=== PATIENT | female | born 1955 | race Caucasian/White ===

== ENCOUNTER → 2016-10-09 | Outpatient (CLI) | payer OTHER | END | disposition home or self-care (01) | LOC: LABWHC1 09:41 | PROVIDERS: ATTEND Psychiatry & Neurology Neurology | DX: R53.83 Other fatigue (principal); R41.3 Other amnesia | CPT/HCPCS: 36415; 82607; 84439; 84443; 84481; 85652; 86780 ==

== ENCOUNTER → 2016-10-12 | Outpatient (CLI) | payer OTHER ==
--- NOTE | 2016-10-12 16:03 | CT ---
EXAMINATION TYPE: CT brain wo con DATE OF EXAM: 10/12/2016 3:57 PM COMPARISON: NONE HISTORY: Forgetfulness CT DLP: 1046 mGycm Automated exposure control for dose reduction was used. FINDINGS: Central structures are midline. There is no evidence of hydrocephalus. No acute focal lesio n, mass effect or midline shift is seen. I do not see evidence of intracranial blood. There is a small air-fluid level in the left maxillary sinus. No depressed skull fracture is seen. IMPRESSION: 1. NORMAL CT SCAN OF THE BRAIN. 2. EVIDENCE OF ACUTE LEFT MAXILLARY SINUSITIS.
== END ==
LOC: RADCTMAIN 15:32
PROVIDERS: ATTEND Psychiatry & Neurology Neurology
DX: J01.00 Acute maxillary sinusitis, unspecified (principal); R41.0 Disorientation, unspecified
CPT/HCPCS: 70450

== ENCOUNTER → 2017-03-02 | Outpatient (CLI) | payer OTHER ==
[2017-03-02 10:13] LABS: CH 30.9; CHCM 32.3; HDW 2.25; HGB 13.5 gm/dL (11.4-16.0); MCH 30.3 pg (25.0-35.0); MCHC 31.4 g/dL (31.0-37.0); MCV 96.3 fL (80.0-100.0); Mean Platelet Volume 7.8; RBC 4.47 m/uL (3.80-5.40); RDW 14.1 % (11.5-15.5); WBC 7.9 k/uL (3.8-10.6)
[2017-03-02 10:18] LABS: ALT 40 U/L (9-52); AST 20 U/L (14-36); Alkaline Phosphatase 77 U/L (38-126); Anion Gap 9 mmol/L; Blood Urea Nitrogen 18 mg/dL (7-17); Calcium 8.9 mg/dL (8.4-10.2); Carbon Dioxide 27 mmol/L (22-30); Chloride 105 mmol/L (98-107); Cholesterol 179 mg/dL (<200); Glucose 84 mg/dL (74-99); HDL Cholesterol 40 mg/dL (40-60); Non-African American GFR(MDRD) >60 (>60 ml/min/1.73 sqM); Potassium 4.1 mmol/L (3.5-5.1); Sodium 141 mmol/L (137-145); Total Bilirubin 0.5 mg/dL (0.2-1.3); Total Protein 6.5 g/dL (6.3-8.2)
== END | disposition home or self-care (01) ==
LOC: LABWHC1 09:31
PROVIDERS: ATTEND Nurse Practitioner Adult Health
DX: E78.5 Hyperlipidemia, unspecified (principal); I10 Essential (primary) hypertension; R60.0 Localized edema
CPT/HCPCS: 36415; 80053; 80061; 83880; 84443; 85027

== ENCOUNTER 2017-04-01 12:14 | Observation (INO) | payer OTHER ==
[2017-04-01] MEDS ORDERED: NITROGLYCERIN OINT 1 INCH/GM PACKET TOPICAL STA (12:43)
[2017-04-01] MEDS ORDERED: ASPIRIN 81 MG PO STA (12:43)
--- NOTE | 2017-04-01 12:47 | ED ---
General Adult HPI - General Chief complaint: Chest Pain Stated complaint: chest pain Time Seen by Provider: 04/01/17 12:20 Source: patient, RN notes reviewed Mode of arrival: wheelchair Limitations: no limitations - History of Present Illness Initial comments: This is a 61-year-old female who presents to the emergency department complaining of intermittent chest pain. Patient states it feels like someone sitting on her chest and she became nauseated with but no vomiting. Patient also states she had some shortness of breath associated with it as well. Patient states it lasts a few seconds to minutes. Patient states his been ongoing all day today. Patient states she's had similar symptoms in the past but they usually go away and don't return today they have been consistently returning since she woke up. Patient denies any recent fever chills or cough. Patient denies any palpitations. Patient denies abdominal pain patient denies nausea vomiting diarrhea. Patient states she had a recent stress test but she has not got the results. Patient denies any headache patient denies numbness weakness. Patient states she was lightheaded earlier when she had the chest pain but no longer. Patient states currently she is chest pain-free. - Related Data Home Medications Medication Instructions Recorded Confirmed Hydrochlothiazide 1 tab PO DAILY 03/08/15 03/08/15 Previous Rx's Medication Instructions Recorded HYDROcodone/APAP 5-325MG [[place] 5] 1 each PO Q4HR PRN #20 tab 03/08/15 Naproxen [Naprosyn] 500 mg PO Q12HR #24 tab 03/08/15 Neomycin Chen/Colist/Hc/Thonzon 5 drops LEFT EAR Q4H #1 bottle 03/08/15 [Cortisporin-Tc Otic Susp] Allergies Allergy/AdvReac Type Severity Reaction Status Date / Time No Known Allergies Allergy Verified 04/01/17 12:23 Review of Systems ROS Statement: Those systems with pertinent positive or pertinent negative responses have been documented in the HPI. ROS Other: All systems not noted in ROS Statement are negative. Past Medical History Past Medical History: Hypertension History of Any Multi-Drug Resistant Organisms: None Reported Past Surgical History: Tonsillectomy, Tubal Ligation Additional Past Surgical History / Comment(s): back surgery Past Psychological History: Depression Smoking Status: Never smoker Past Alcohol Use History: None Reported Past Drug Use History: None Reported General Exam - General Exam Comments Initial Comments: GENERAL: Patient is well-developed and well-nourished. Patient is nontoxic and well- hydrated and is in no acute distress. ENT: Neck is soft and supple. No significant lymphadenopathy is noted. Oropharynx is clear. Moist mucous membranes. Neck has full range of motion without eliciting any pain. EYES: The sclera were anicteric and conjunctiva were pink and moist. Extraocular movements were intact and pupils were equal round and reactive to light. Eyelids were unremarkable. PULMONARY: Unlabored respirations. Good breath sounds bilaterally. No audible rales rhonchi or wheezing was noted. CARDIOVASCULAR: There is a regular rate and rhythm without any murmurs gallops or rubs. ABDOMEN: Soft and nontender with normal bowel sounds. No palpable organomegaly was noted. There is no palpable pulsatile mass. SKIN: Skin is clear with no lesions or rashes and otherwise unremarkable. NEUROLOGIC: Patient is alert and oriented x3. Cranial nerves II through XII are grossly intact. Motor and sensory are also intact. Normal speech, volume and content. Symmetrical smile. MUSCULOSKELETAL: Normal extremities with adequate strength and full range of motion. No lower extremity swelling or edema. No calf tenderness. LYMPHATICS: No significant lymphadenopathy is noted PSYCHIATRIC: Normal psychiatric evaluation. Normal interpersonal interactions appears functionally intact in deals appropriately with others. No signs of depression. No signs of anxiety. Limitations: no limitations Course Vital Signs 04/01/17 04/01/17 12:20 13:09 Temperature 98.8 F Pulse Rate 52 L 57 L Respiratory 20 18 Rate Blood Pressure 131/71 133/72 O2 Sat by Pulse 98 98 Oximetry Medical Decision Making - Medical Decision Making EKG shows sinus bradycardia 51 bpm LA interval is 178 QRSs 108 QTC intervals 410 QTC is 377. Patient's EKG shows no ST segment elevation or depression or T wave abnormalities are noted. Patient has unstable angina so I started the patient on heparin. She continues to have intermittent pain while in the emergency department. Patient's chest x- ray was normal. I spoke with Dr. Juares she agreed to admit the patient I wrote admitting orders I continued patient's heparin Nitropaste and aspirin up on the floor. I consult cardiology. - Lab Data Result diagrams: 04/01/17 12:31 04/01/17 12:31 Lab Results 04/01/17 04/01/1717 Range/Units 12:31 12:31 12:31 WBC 9.5 (3.8-10.6) k/uL RBC 4.52 (3.80-5.40) m/uL Hgb 13.7 (11.4-16.0) gm/dL Hct 41.9 (34.0-46.0) % MCV 92.8 (80.0-100.0) fL MCH 30.3 (25.0-35.0) pg MCHC 32.7 (31.0-37.0) g/dL RDW 14.1 (11.5-15.5) % Plt Count 255 (150-450) k/uL Neutrophils % 72 % Lymphocytes % 20 % Monocytes % 4 % Eosinophils % 1 % Basophils % 1 % Neutrophils # 6.9 (1.3-7.7) k/uL Lymphocytes # 1.9 (1.0-4.8) k/uL Monocytes # 0.4 (0-1.0) k/uL Eosinophils # 0.1 (0-0.7) k/uL Basophils # 0.1 (0-0.2) k/uL PT (9.0-12.0) sec INR (<1.2) APTT (22.0-30.0) sec Sodium 142 (137-145) mmol/L Potassium 4.7 (3.5-5.1) mmol/L Chloride 107 (98-107) mmol/L Carbon Dioxide 23 (22-30) mmol/L Anion Gap 12 mmol/L BUN 16 (7-17) mg/dL Creatinine 0.71 (0.52-1.04) mg/dL Est GFR (MDRD) Af Amer >60 (>60 ml/min/1.73 sqM) Est GFR (MDRD) Non-Af >60 (>60 ml/min/1.73 sqM) Glucose 93 (74-99) mg/dL Calcium 9.8 (8.4-10.2) mg/dL Magnesium 2.0 (1.6-2.3) mg/dL Total Bilirubin 0.4 (0.2-1.3) mg/dL AST 27 (14-36) U/L ALT 44 (9-52) U/L Alkaline Phosphatase 84 (38-126) U/L Total Creatine Kinase 176 H (30-135) U/L CK-MB (CK-2) 2.2 (0.0-2.4) ng/mL CK-MB (CK-2) Rel Index 1.3 Troponin I <0.012 (0.000-0.034) ng/mL Total Protein 7.3 (6.3-8.2) g/dL Albumin 4.3 (3.5-5.0) g/dL 04/01/17 Range/Units 12:31 WBC (3.8-10.6) k/uL RBC (3.80-5.40) m/uL Hgb (11.4-16.0) gm/dL Hct (34.0-46.0) % MCV (80.0-100.0) fL MCH (25.0-35.0) pg MCHC (31.0-37.0) g/dL RDW (11.5-15.5) % Plt Count (150-450) k/uL Neutrophils % % Lymphocytes % % Monocytes % % Eosinophils % % Basophils % % Neutrophils # (1.3-7.7) k/uL Lymphocytes # (1.0-4.8) k/uL Monocytes # (0-1.0) k/uL Eosinophils # (0-0.7) k/uL Basophils # (0-0.2) k/uL PT 10.4 (9.0-12.0) sec INR 1.0 (<1.2) APTT 24.1 (22.0-30.0) sec Sodium (137-145) mmol/L Potassium (3.5-5.1) mmol/L Chloride (98-107) mmol/L Carbon Dioxide (22-30) mmol/L Anion Gap mmol/L BUN (7-17) mg/dL Creatinine (0.52-1.04) mg/dL Est GFR (MDRD) Af Amer (>60 ml/min/1.73 sqM) Est GFR (MDRD) Non-Af (>60 ml/min/1.73 sqM) Glucose (74-99) mg/dL Calcium (8.4-10.2) mg/dL Magnesium (1.6-2.3) mg/dL Total Bilirubin (0.2-1.3) mg/dL AST (14-36) U/L ALT (9-52) U/L Alkaline Phosphatase (38-126) U/L Total Creatine Kinase (30-135) U/L CK-MB (CK-2) (0.0-2.4) ng/mL CK-MB (CK-2) Rel Index Troponin I (0.000-0.034) ng/mL Total Protein (6.3-8.2) g/dL Albumin (3.5-5.0) g/dL Critical Care Time Critical Care Time: Yes Total Critical Care Time: 35 Disposition Clinical Impression: Unstable angina pectoris Disposition: ADMITTED IP TO THIS HOSP Referrals: Virgilio Madsen MD [Primary Care Provider] - 1-2 days Time of Disposition: 13:54
--- NOTE | 2017-04-01 12:57 | XR ---
EXAMINATION TYPE: XR chest 2V DATE OF EXAM: 04/01/2017 COMPARISON: NONE HISTORY: Shortness of breath TECHNIQUE: Frontal and lateral views of the chest are obtained. FINDINGS: Scattered senescent parenchymal changes noted. Hyperinflation compatible with COPD. No evidence for infiltrate. No evidence for atelectasis. Heart size is stable. Mediastinal structures are stable and grossly unremarkable. No evidence for hilar prominence. Degenerative changes dorsal spine. IMPRESSION: 1. No evidence for acute pulmonary disease.
[2017-04-01 13:00] LABS: Basophils # (A) 0.1 k/uL (0-0.2); Basophils % (A) 1 %; CH 31.5; CHCM 34.1; Eosinophils # (A) 0.1 k/uL (0-0.7); Eosinophils % (A) 1 %; HCT 41.9 % (34.0-46.0); HDW 2.29; HGB 13.7 gm/dL (11.4-16.0); Luc # (Auto) 0.17; Luc % (Auto) 2; Lymphocytes # (A) 1.9 k/uL (1.0-4.8); Lymphocytes % (A) 20 %; MCH 30.3 pg (25.0-35.0); MCHC 32.7 g/dL (31.0-37.0); MCV 92.8 fL (80.0-100.0); Mean Platelet Volume 7.5; Monocytes # (A) 0.4 k/uL (0-1.0); Monocytes % (A) 4 %; Neutrophils # (A) 6.9 k/uL (1.3-7.7); Neutrophils % (A) 72 %; RBC 4.52 m/uL (3.80-5.40); RDW 14.1 % (11.5-15.5); WBC 9.5 k/uL (3.8-10.6); WBC (Perox) 10.01
[2017-04-01 13:06] LABS: Partial Thromboplastin Time 24.1 sec (22.0-30.0); Prothrombin Time 10.4 sec (9.0-12.0)
[2017-04-01 13:07] LABS: ALT 44 U/L (9-52); AST 27 U/L (14-36); Alkaline Phosphatase 84 U/L (38-126); Anion Gap 12 mmol/L; Blood Urea Nitrogen 16 mg/dL (7-17); Calcium 9.8 mg/dL (8.4-10.2); Carbon Dioxide 23 mmol/L (22-30); Chloride 107 mmol/L (98-107); Glucose 93 mg/dL (74-99); Non-African American GFR(MDRD) >60 (>60 ml/min/1.73 sqM); Potassium 4.7 mmol/L (3.5-5.1); Sodium 142 mmol/L (137-145); Total Bilirubin 0.4 mg/dL (0.2-1.3); Total Protein 7.3 g/dL (6.3-8.2)
[2017-04-01 13:18] LABS: Creatine Kinase 176 U/L (30-135)
[2017-04-01 13:30] LABS: Creatine Kinase MB 2.2 ng/mL (0.0-2.4); Troponin I <0.012 ng/mL (0.000-0.034)
[2017-04-01] MEDS ORDERED: HEPARIN SODIUM,PORCINE 5,000 UNIT/ML 1 ML VIAL IV ONE (13:54)
[2017-04-01] MEDS ORDERED: NITROGLYCERIN SL TABS 0.4 MG TAB SUBLINGUAL PRN (13:55)
[2017-04-01] MEDS ORDERED: HEPARIN SODIUM,PORCINE/D5W PMX 25,000 UNIT in DEXTROSE/WATER 1 500ML.BAG IV SCH (14:00)
[2017-04-01 19:51] LABS: Creatine Kinase 146 U/L (30-135)
[2017-04-01 19:58] LABS: Partial Thromboplastin Time 27.8 sec (22.0-30.0)
[2017-04-01 20:01] LABS: Troponin I <0.012 ng/mL (0.000-0.034)
[2017-04-01 20:04] LABS: Creatine Kinase MB 2.2 ng/mL (0.0-2.4)
[2017-04-01] MEDS ORDERED: RX INFO: IV CONTRAST WAS GIVEN 1 EACH MISC MISCELLANE PRN (21:47)
--- NOTE | 2017-04-01 22:40 | CT ---
EXAM: CT Angiography Chest With Intravenous Contrast CLINICAL HISTORY: Reason: elevated d-dimer TECHNIQUE: Axial computed tomographic angiography images of the chest with 100 mL of Omni 350 administered intravenously. DLP is 493.40 mGy-cm. This CT exam was performed using one or more of the following dose reduction techniques: automated exposure control, adjustment of the mA and/or kV according to patient size, and/or use of iterative reconstruction technique. MIP reconstructed images were created and reviewed. COMPARISON: No relevant prior studies available. FINDINGS: Pulmonary arteries: Unremarkable. No pulmonary embolism. Aorta: No acute findings. No thoracic aortic aneurysm. Lungs: Unremarkable. No mass. No consolidation. Pleural space: Unremarkable. No significant effusion. No pneumothorax. Heart: Unremarkable. No cardiomegaly. No significant pericardial effusion. No evidence of RV dysfunction. Bones/joints: No acute fracture. No dislocation. Soft tissues: Enlarged right thyroid lobe noted. Lymph nodes: Unremarkable. No enlarged lymph nodes. IMPRESSION: 1. Normal chest CTA. No pulmonary embolism. 2. Incidental enlarged right thyroid lobe noted.
[2017-04-01] MEDS: NITROGLYCERIN OINT 1 INCH/GM PACKET TOPICAL SCH (22:45)
[2017-04-02] MEDS: NITROGLYCERIN OINT 1 INCH/GM PACKET TOPICAL SCH ×3 (00:36→12:26)
[2017-04-02 01:54] LABS: Creatine Kinase 139 U/L (30-135)
[2017-04-02 02:07] LABS: Creatine Kinase MB 1.6 ng/mL (0.0-2.4); Troponin I <0.012 ng/mL (0.000-0.034)
[2017-04-02 02:54] LABS: Cholesterol 231 mg/dL (<200); HDL Cholesterol 35 mg/dL (40-60)
[2017-04-02 08:08] VITALS: BP 118/60; PULSE 53; RESP 16; TEMP 97.6
[2017-04-02] MEDS ORDERED: FUROSEMIDE 20 MG TAB PO SCH (09:00)
[2017-04-02] MEDS ORDERED: ASPIRIN 325 MG TAB PO SCH (09:00)
[2017-04-02] MEDS ORDERED: POTASSIUM CHLORIDE ER 10 MEQ TAB.ER.PRT PO SCH (09:00)
[2017-04-02] MEDS ORDERED: LISINOPRIL 10 MG TAB PO SCH (09:00)
--- NOTE | 2017-04-02 11:24 | CONS ---
CONSULTATION This is a 61-year-old lady with a history of obesity, hypertension who sees Dr. Madsen in the outpatient setting. Came into the hospital with episode of chest pressure. The quality of the discomfort seems somewhat atypical but seemed to be persistent and she obtained some relief with nitro paste. At the time of my evaluation, she is comfortable, resting, feels her symptoms have resolved. Apparently this has been going on for about a 4 to 5 week duration and she saw Dr. Rodriguez in the office upon referral by Dr. Madsen and a stress test and echo were performed. The results are not available at the time of my dictation. However, patient is reasonably active. Her symptoms do not seem to occur with activity. They are random in fashion and especially this episode of chest pressure occurred while she was not doing any physical activity. She described it as a heavy pressure associated with some nausea and some shortness of breath. However she is asymptomatic, resting comfortably. Initial EKG and troponins are normal. PAST MEDICAL HISTORY: 1. Hypertension. 2. Probable reactive airway disease. 3. Patient is status post tubal ligation and tonsillectomy. 4. She also had some back surgery in the past. SOCIAL HISTORY: Patient is not a smoker. Does not consume alcohol on a regular basis. MEDICATIONS: Medications at home include Zestril 10 mg daily, Lasix 20 mg p.r.n., potassium 20 mEq daily. She also takes some Flonase spray. ALLERGIES: None. REVIEW OF SYSTEMS: Unremarkable other than above-mentioned facts. PHYSICAL EXAMINATION: On examination, blood pressure is 128/70, pulse rate is 60 per minute, regular. HEENT: Unremarkable. Fundus was not examined by me. NECK: Supple. There is no JVD. I do not hear a carotid bruit. Heart exam reveals S1, S2. There is a short systolic murmur at the base with preserved second heart sound. Lungs are clear. Abdomen is distended, nontender. Lower extremities reveal palpable pulses, trace edema. Central nervous system is normal. EKG revealed sinus mechanism, leftward axis, no acute changes. LABORATORY DATA: Laboratory data revealed unremarkable troponins. IMPRESSION: 1. Chest pain syndrome, several features are atypical but cannot exclude angina. 2. Hypertension. 3. Obesity. 4. Patient had recent outpatient testing and I will secure this information. RECOMMENDATIONS: For now I am recommending that we continue IV heparin and nitro paste. If she has further symptoms or if the stress test info suggests any ischemia, I will recommend cardiac cath. Otherwise we will pursue current management and I will call back and update with the findings on the stress test that was apparently performed. Discussed my thoughts in detail with the patient. The patient does not seem to have any symptoms or she is not in any distress at this time and EKG was unremarkable. Thank you very much for the consult. MATTIE / ROSALIA: [id number] /
--- NOTE | 2017-04-02 17:12 | P.HPIM ---
History of Present Illness H&P Date: 04/02/17 Chief Complaint: Chest pain This will serve both H&P and discharge summary This is a pleasant 61-year-old lady patient of Dr. Kj barry. She has underlying history off hypertension and hyperlipidemia, mold ALLERGIES cat ALLERGIES, admitted to the emergency room with intermittent chest pain for the past 4 weeks accompanied by nausea and intermittent shortness of breath, this lasted for a few seconds to a few minutes, however over the past 1-2 days this has persisted. Patient was subsequently seen in the emergency room, for evaluation. she sees a windows and doors installer however she had a stress test for it was done 2 weeks ago along with an echocardiogram, the results are not known by the patient, Other symptoms include paresthesias in the left side of the body during the chest pain. No radiation of the pain, no dyspepsia, except for nausea, patient did not have any previous workup of the gallbladder in the past no cough no leg swelling. Emergency room she had been evaluated, EKG was unremarkable troponins are negative 3, d-dimer is elevated at 0.0824 which was requested CTA PE protocol, this is negative for pulmonary emboli however there is a noticeable right thyroid enlargement noted. She was admitted with consultation to cardiology Review of Systems Constitutional: Reports as per HPI, Denies anorexia, Denies chills, Denies chronic headaches, Denies chronic pain, Denies daytime sleepiness, Denies fatigue, Denies fever, Denies lethargy, Denies malaise, Denies night sweats, Denies poor appetite, Denies sweats, Denies weakness, Denies weight gain, Denies weight loss Ears, nose, mouth and throat: Reports as per HPI, Denies ant. neck pain, Denies bleeding gums, Denies dental pain, Denies dysphagia, Denies epistaxis, Denies headache, Denies hoarseness, Denies mouth pain, Denies nasal congestion, Denies nasal discharge, Denies neck fullness/pressure, Denies neck lump, Denies nose pain, Denies odynophagia, Denies post-nasal drip, Denies sinus pain, Denies sinus pressure, Denies swelling in mouth, Denies swelling in throat, Denies sore throat, Denies vertigo, Denies voice changes Breasts: Reports as per HPI Cardiovascular: Reports as per HPI, Reports chest pain, Denies claudication, Denies decreased exercise tolerance, Denies dyspnea on exertion, Denies edema, Denies high blood pressure, Denies irregular heart beat, Denies leg edema, Denies lightheadedness, Denies orthopnea, Denies palpitations, Denies paroxysmal nocturnal dyspnea, Denies phlebitis, Denies rapid heart beat, Denies shortness of breath, Denies syncope Respiratory: Reports as per HPI Gastrointestinal: Reports as per HPI, Denies abdominal pain, Denies belching, Denies bloating, Denies BRBPR, Denies change in bowel habits, Denies coffee ground emesis, Denies constipation, Denies diarrhea, Denies dyspepsia, Denies early satiety, Denies excessive gas, Denies heartburn, Denies hematemesis, Denies hematochezia, Denies indigestion, Denies jaundice, Denies lactose intolerance, Denies loss of appetite, Denies melena, Denies nausea, Denies vomiting Genitourinary: Reports as per HPI, Denies abnormal vaginal bleeding, Denies decreased libido, Denies difficulty conceiving, Denies difficulty voiding, Denies dysmenorrhea, Denies dyspareunia, Denies dysuria, Denies flank pain, Denies genital sores, Denies hematuria, Denies hot flashes, Denies incomplete emptying, Denies kidney stones, Denies menorrhagia, Denies mixed incontinence, Denies nocturia, Denies pelvic pain, Denies post void dribbling, Denies , Denies prolapse symptoms, Denies stress incontinence, Denies urge incontinence , Denies urgency, Denies urinary frequency, Denies vaginal discharge, Denies vaginal dryness, Denies vaginal itching, Denies vaginal odor Menstruation: Reports postmenopausal Musculoskeletal: Reports as per HPI, Denies arm numbness/tingling, Denies atrophy, Denies fractures, Denies frequent falls, Denies gait dysfunction, Denies hot joints, Denies leg numbness/tingling, Denies limitation of motion, Denies loss of height, Denies low back pain, Denies morning stiffness, Denies muscle cramps, Denies muscle weakness, Denies myalgias, Denies neck pain, Denies neck stiffness, Denies prior amputations, Denies redness of joints, Denies shooting arm pain, Denies shooting leg pain Integumentary: Reports as per HPI Neurological: Reports paresthesias, Denies as per HPI, Denies aphasia, Denies ataxia, Denies balance difficulties, Denies burning pain, Denies change in mentation, Denies change in smell/taste, Denies change in speech, Denies confusion, Denies convulsions, Denies double vision, Denies gait dysfunction, Denies head injury, Denies headaches, Denies hearing difficulties, Denies lack of coordination, Denies loss of vision, Denies memory loss, Denies migraines, Denies motor disturbance, Denies numbness, Denies paralysis, Denies seizures, Denies sensory deficit, Denies spasticity, Denies syncope, Denies tic, Denies tingling, Denies transient paralysis, Denies tremors, Denies vertigo, Denies weakness, Denies visual changes Psychiatric: Reports as per HPI, Reports anxiety Endocrine: Reports as per HPI Hematologic/Lymphatic: Reports as per HPI, Denies easy bleeding, Denies easy bruising, Denies lymphadenopathy, Denies lymphedema, Denies thrombophilia Allergic/Immunologic: Reports as per HPI, Denies allergic rhinitis, Denies anaphylaxis, Denies angioedema, Denies gluten intolerance, Denies persistent infections, Denies seasonal allergies, Denies urticaria, Denies wheezing Past Medical History Past Medical History: Eye Disorder, Hypertension, Osteoarthritis (OA), Sleep Apnea/CPAP/BIPAP Additional Past Medical History / Comment(s): COLITIS,"GLAUCOMA NOT SURE WHICH EYE", PAST MIGTAINES, SINUS PROBLEMS, DDD-SPINE, HEMORRHOIDS-"HAD SOME BLEEDING FROM THEM LAST WEEK". History of Any Multi-Drug Resistant Organisms: None Reported Past Surgical History: Back Surgery, Tonsillectomy, Tubal Ligation Additional Past Surgical History / Comment(s): back surgery Past Anesthesia/Blood Transfusion Reactions: Motion Sickness Additional Past Anesthesia/Blood Transfusion Reaction / Comment(s): MILD CLUASTERPHOBIA Smoking Status: Never smoker - Past Family History Mother Family Medical History: Cancer Additional Family Medical History / Comment(s): AT AGE 64 LUNG CANCER W/ METS. Father Family Medical History: Cancer Additional Family Medical History / Comment(s): AT AGE 76-LYMPHOMA Medications and Allergies Home Medications Medication Instructions Recorded Confirmed Type Biotin 5 mg PO DAILY 04/01/17 04/01/17 History Fluticasone Nasal Pioche [Flonase 1 spray EA NOSTRIL DAILY PRN 04/01/17 04/01/17 History Nasal Pioche] Furosemide [Lasix] 20 mg PO DAILY 04/01/17 04/01/17 History Lisinopril [Zestril] 10 mg PO DAILY 04/01/17 04/01/17 History Plant Stanol Geetha [Cholest Off] 450 mg PO DAILY 04/01/17 04/01/17 History Potassium Chloride ER [K-Dur 10] 10 meq PO DAILY 04/01/17 04/01/17 History Aspirin [Adult Low Dose Aspirin EC] 81 mg PO AC-BRKFST #30 tablet. 04/02/17 Rx Budesonide-Formot 160-4.5 Mcg 2 puff INHALATION BID #1 inhaler 04/02/17 Rx [Symbicort 160-4.5 Mcg Inhaler] Allergies Allergy/AdvReac Type Severity Reaction Status Date / Time No Known Allergies Allergy Verified 04/01/17 14:03 Physical Exam Vitals: Vital Signs Temp Pulse Pulse Resp BP Pulse Ox 04/02/17 08:00 97.6 F 53 L 16 118/60 98 04/02/17 04:00 97.9 F 50 L 18 111/59 99 04/02/17 03:13 44 L 18 04/02/17 00:00 53 L 18 04/01/17 23:16 47 L 18 110/52 97 04/01/17 19:18 97.6 F 56 L 18 124/62 95 04/01/17 17:27 98.1 F 54 L 18 133/66 99 Intake and Output 04/02/17 04/02/17 04/02/17 06:59 14:59 22:59 Other: Voiding Method Toilet Toilet - Constitutional General appearance: no average body habitus, cooperative, no disheveled, no mild distress, no morbidly obese, no acute distress, obese, no severe distress, no thin - EENT Eyes: no abnormal pupil, anicteric sclerae, no disc margins sharp, no edentulous , EOMI, PERRLA, no fundus normal, no photophobia, dentition normal, no poor dentition, no ptosis, no scleral icterus, normal appearance ENT: hearing grossly normal, NA/AT, normal oropharynx - Respiratory Respiratory: bilateral: CTA, negative: diminished, dullness, rales, rhonchi - Cardiovascular Rhythm: regular Heart sounds: normal: S1, S2 Abnormal Heart Sounds: no systolic murmur, no diastolic murmur, no rub, no S3 Gallop, no S4 Gallop, no click, no other - Gastrointestinal General gastrointestinal: normal bowel sounds, soft - Integumentary Integumentary: normal, normal turgor - Neurologic Neurologic: CNII-XII intact - Musculoskeletal Musculoskeletal: gait normal, strength equal bilaterally - Psychiatric Psychiatric: A&O x's 3, appropriate affect, intact judgment & insight Results CBC & Chem 7: 04/01/17 12:31 04/01/17 12:31 Labs: Abnormal Lab Results - Last 24 Hours (Table) 04/01/17 04/01/17 04/01/17 Range/Units 12:31 19:19 19:19 D-Dimer 0.82 H (<0.60) mg/L FEU Total Creatine Kinase 146 H (30-135) U/L Triglycerides 180 H (<150) mg/dL Cholesterol 231 H (<200) mg/dL LDL Cholesterol, Calc 160 H (0-99) mg/dL HDL Cholesterol 35 L (40-60) mg/dL 04/02/17 Range/Units 00:36 D-Dimer (<0.60) mg/L FEU Total Creatine Kinase 139 H (30-135) U/L Triglycerides (<150) mg/dL Cholesterol (<200) mg/dL LDL Cholesterol, Calc (0-99) mg/dL HDL Cholesterol (40-60) mg/dL Laboratory Results WBC 9.5 k/uL (3.8-10.6) 04/01/17 12:31 RBC 4.52 m/uL (3.80-5.40) 04/01/17 12:31 Hgb 13.7 gm/dL (11.4-16.0) 04/01/17 12:31 Hct 41.9 % (34.0-46.0) 04/01/17 12:31 MCV 92.8 fL (80.0-100.0) 04/01/17 12:31 MCH 30.3 pg (25.0-35.0) 04/01/17 12:31 MCHC 32.7 g/dL (31.0-37.0) 04/01/17 12:31 RDW 14.1 % (11.5-15.5) 04/01/17 12:31 Plt Count 255 k/uL (150-450) 04/01/17 12:31 Neutrophils % 72 % 04/01/17 12:31 Lymphocytes % 20 % 04/01/17 12:31 Monocytes % 4 % 04/01/17 12:31 Eosinophils % 1 % 04/01/17 12:31 Basophils % 1 % 04/01/17 12:31 Neutrophils # 6.9 k/uL (1.3-7.7) 04/01/17 12:31 Lymphocytes # 1.9 k/uL (1.0-4.8) 04/01/17 12:31 Monocytes # 0.4 k/uL (0-1.0) 04/01/17 12:31 Eosinophils # 0.1 k/uL (0-0.7) 04/01/17 12:31 Basophils # 0.1 k/uL (0-0.2) 04/01/17 12:31 PT 10.4 sec (9.0-12.0) 04/01/17 12:31 INR 1.0 (<1.2) 04/01/17 12:31 APTT 27.8 sec (22.0-30.0) 04/01/17 19:19 D-Dimer 0.82 mg/L FEU (<0.60) H 04/01/17 19:19 Sodium 142 mmol/L (137-145) 04/01/17 12:31 Potassium 4.7 mmol/L (3.5-5.1) 04/01/17 12:31 Chloride 107 mmol/L (98-107) 04/01/17 12:31 Carbon Dioxide 23 mmol/L (22-30) 04/01/17 12:31 Anion Gap 12 mmol/L 04/01/17 12:31 BUN 16 mg/dL (7-17) 04/01/17 12:31 Creatinine 0.71 mg/dL (0.52-1.04) 04/01/17 12:31 Est GFR (MDRD) Af Amer >60 (>60 ml/min/1.73 sqM) 04/01/17 12:31 Est GFR (MDRD) Non-Af >60 (>60 ml/min/1.73 sqM) 04/01/17 12:31 Glucose 93 mg/dL (74-99) 04/01/17 12:31 Calcium 9.8 mg/dL (8.4-10.2) 04/01/17 12:31 Magnesium 2.0 mg/dL (1.6-2.3) 04/01/17 12:31 Total Bilirubin 0.4 mg/dL (0.2-1.3) 04/01/17 12:31 AST 27 U/L (14-36) 04/01/17 12:31 ALT 44 U/L (9-52) 04/01/17 12:31 Alkaline Phosphatase 84 U/L (38-126) 04/01/17 12:31 Total Creatine Kinase 139 U/L (30-135) H 04/02/17 00:36 CK-MB (CK-2) 1.6 ng/mL (0.0-2.4) 04/02/17 00:36 CK-MB (CK-2) Rel Index 1.2 04/02/17 00:36 Troponin I <0.012 ng/mL (0.000-0.034) 04/02/17 00:36 NT-Pro-B Natriuret Pep 17 pg/mL 04/01/17 19:19 Total Protein 7.3 g/dL (6.3-8.2) 04/01/17 12:31 Albumin 4.3 g/dL (3.5-5.0) 04/01/17 12:31 Triglycerides 180 mg/dL (<150) H 04/01/17 12:31 Cholesterol 231 mg/dL (<200) H 04/01/17 12:31 LDL Cholesterol, Calc 160 mg/dL (0-99) H 04/01/17 12:31 HDL Cholesterol 35 mg/dL (40-60) L 04/01/17 12:31 Assessment and Plan Plan: 1. Intermittent chest pain accompanied by intermittent dyspnea even on dressing position, she does have no history off CAD her last stress test was performed 2 weeks ago along with an echocardiogram, the results were forwarded by Dr. Kathy clifton this morning as a called office in the were negative,. Symptoms could be related to reactive airway disease symptomatology, we discussed treatments to include inhalers, Symbicort was added for home discharge , no oral prednisone needed at this time, investigations could be completed as an outpatient to include a gallbladder pathology as well as a pulmonary pathology. Next CTA of the chest was negative for PE, d-dimer was elevated 2. Right thyroid enlargement noted, no visible nodules, negative for lymph node , incidentally noted by CT imaging formal workup as an outpatient to include a thyroid ultrasound and thyroid function tests, no new medications started at this time 3. Hypertension currently on Zestril 10 mg daily and Lasix 20 g daily no changes made 4. Reactive airway disease, with underlying history of mold ALLERGIES, asthma is a possibility, patient was started on Symbicort 162 puffs twice a day no rescue inhaler needed no oral prednisone needed at this time, this can be readjusted on her routine visits with her PCP in one week instructions for inhaler use to be given by the pharmacy on initial dosing 5. Secondary prevention with aspirin 81 mg daily started upon discharge 6. Hyperlipidemia, patient's cholest off 7 history of mold ALLERGIES patient cannot remember any recent triggers Discharge condition stable and improved cleared by cardiology no further cardiac workup as the workup is completed 2 weeks prior to admission Consult Orders Discharge Medication List Biotin 5 mg PO DAILY 04/01/17 [History] Fluticasone Nasal Pioche [Flonase Nasal Pioche] 1 spray EA NOSTRIL DAILY PRN 04/01 [History] Furosemide [Lasix] 20 mg PO DAILY 04/01/17 [History] Lisinopril [Zestril] 10 mg PO DAILY 04/01/17 [History] Plant Stanol Geetha [Cholest Off] 450 mg PO DAILY 04/01/17 [History] Potassium Chloride ER [K-Dur 10] 10 meq PO DAILY 04/01/17 [History] Aspirin [Adult Low Dose Aspirin EC] 81 mg PO WILLIAM #30 tablet. 04/02/17 [ Rx] Budesonide-Formot 160-4.5 Mcg [Symbicort 160-4.5 Mcg Inhaler] 2 puff INHALATION BID #1 inhaler 04/02/17 [Rx]
== END 2017-04-02 14:50 | disposition home or self-care (01) ==
LOC: EC 12:14 → 3OBS 13:55
PROVIDERS: ADMIT Family Medicine; ATTEND Family Medicine
DX: R07.89 Other chest pain (principal); R06.00 Dyspnea, unspecified; R79.89 Other specified abnormal findings of blood chemistry; E04.9 Nontoxic goiter, unspecified; I10 Essential (primary) hypertension; Z91.048 Other nonmedicinal substance allergy status; E78.5 Hyperlipidemia, unspecified; J45.909 Unspecified asthma, uncomplicated; R42 Dizziness and giddiness; R11.0 Nausea; R06.02 Shortness of breath; R20.9 Unspecified disturbances of skin sensation; Z79.899 Other long term (current) drug therapy; E66.9 Obesity, unspecified; Z68.41 Body mass index [BMI] 40.0-44.9, adult; G47.30 Sleep apnea, unspecified; Z99.89 Dependence on other enabling machines and devices; Z80.1 Family history of malignant neoplasm of trachea, bronchus and lung; Z80.7 Family history of other malignant neoplasms of lymphoid, hematopoietic and related tissues
CPT/HCPCS: 99291; 96365 ×2; 96366 ×3; 96376 ×2; 36415; 93005; 85379; 83880; 80061; 80053; 82550 ×2; 82553 ×2; 83735; 84484 ×2; 85025; 85610; 85730; 71020; 71275; G0378 ×2; J1644 ×2; Q9967

== ENCOUNTER → 2017-12-27 | Outpatient (CLI) | payer OTHER ==
--- NOTE | 2017-12-28 14:23 | MM ---
Reason for exam: screening (asymptomatic). Last mammogram was performed 2 years and 1 month ago. History: Patient is postmenopausal. Family history of breast cancer in paternal grandmother at age 80. Physical Findings: A clinical breast exam by your physician is recommended on an annual basis and results should be correlated with mammographic findings. MG Screening Mammo w CAD Bilateral CC and MLO view(s) were taken. Prior study comparison: December 01, 2015, bilateral MG diagnostic mammo w CAD [facility]. May 26, 2015, right breast MG 3d diag mammo w/cad RT. There are scattered fibroglandular densities. Benign appearing bilateral calcifications. No suspicious abnormality. ASSESSMENT: Benign, BI-RAD 2 RECOMMENDATION: Routine screening mammogram of both breasts in 1 year.
== END | disposition home or self-care (01) ==
LOC: RADMAMWWP 14:12
PROVIDERS: ATTEND Internal Medicine
DX: Z12.31 Encounter for screening mammogram for malignant neoplasm of breast (principal)
CPT/HCPCS: 77067